=== PATIENT | male | born 1975 | race Asian ===

== ENCOUNTER 2019-10-26 15:50 | Emergency (ER) | payer SELFPAY ==
[~2019-10-26] VITALS: Ht 170.2 cm; Wt 68.2 kg
[2019-10-26] MEDS ORDERED: IV NORMAL SALINE 1000ML BAG 1,000 ML IV ONE (16:30)
[2019-10-26] MEDS ORDERED: ONDANSETRON PF 4 MG/2 ML VIAL. IVP ONE (16:30)
[2019-10-26] MEDS ORDERED: PANTOPRAZOLE IV PUSH 40 MG VIAL. IVP ONE (16:30)
--- NOTE | 2019-10-26 16:35 | PHYS DOC ---
General Adult EDM: Chief Complaint: GI PROBLEM HPI: HPI: Patient is a 44 year old male who presents with 2 weeks ago he began having abdominal pain with some diarrhea and he saw blood in his stool. He stated that it is a dull generalized pain. He stated that he began taking Pepto-Bismol and the blood went away and his stools got dark. He states he has not had a stool for the last week but he still having a generalized dull abdominal pain. He states he does have a lack of appetite and some nausea that comes and goes. He states he is not been vomiting, running a fever, chest pain, shortness of air, headache, dizziness, numbness tingling, visual changes, weakness, focal weaknes ses. He states he has no medical history and takes no medications. He denies any alcohol use or NSAID use. Review of Systems: Review of Systems: GI: Generalized abdominal pain, nausea, denies vomiting, + bloody stools or +diarrhea. [] Heart Score: Risk Factors: Risk Factors: DM, Current or recent (<one month) smoker, HTN, HLP, family history of CAD, obesity. Risk Scores: Score 0 - 3: 2.5% MACE over next 6 weeks - Discharge Home Score 4 - 6: 20.3% MACE over next 6 weeks - Admit for Clinical Observation Score 7 - 10: 72.7% MACE over next 6 weeks - Early Invasive Strategies Physical Exam: PE: Constitutional: Well developed, well nourished, no acute distress, non-toxic appearance. [] HENT: Normocephalic, atraumatic, bilateral external ears normal, oropharynx moist, no oral exudates, nose normal. [] Eyes: PERRLA, EOMI, conjunctiva normal, no discharge. [] Neck: Normal range of motion, no tenderness, supple, no stridor. [] Cardiovascular:Heart rate regular rhythm, no murmur [] Lungs & Thorax: Bilateral breath sounds clear to auscultation [] Abdomen: Bowel sounds hypoactive, soft, no tenderness, no masses, no pulsatile masses. [] Skin: Warm, dry, no erythema, no rash. [] Back: No tenderness, no CVA tenderness. [] Extremities: No tenderness, no cyanosis, no clubbing, ROM intact, no edema. [] Neurologic: Alert and oriented X 3, normal motor function, normal sensory function, no focal deficits noted. [] Psychologic: Affect normal, judgement normal, mood normal. [] EKG: EK and read by Dr Andrew. Sinus Tachycardia and no STEMI[] Radiology/Procedures: Radiology/Procedures: [] Impression: [facility] [address] [place] [address] IMAGING REPORT Signed PATIENT: WU NELSON ACCOUNT: [id number] : 1975 LOCATION: ER AGE: 44 SEX: M EXAM STATUS: REG ER ORD. PHYSICIAN: JACE WESLEY APRN REASON: abd pain, blood in stool PROCEDURE: CT ABD PELV W/ IV CONTRST ONLY CT abdomen and pelvis with contrast History: Abdominal pain, blood in stool Technique: After the administration of intravenous contrast, CT imaging was performed of the abdomen and pelvis. No oral contrast was given as per request. Multiplanar images are reviewed. Exposure: One or more of the following individualized dose reduction techniques were utilized for this examination: 1. Automated exposure control 2. Adjustment of the mA and/or kV according to patient size 3. Use of iterative reconstruction technique. Comparison: None Findings: There is mild dependent atelectasis of the lung bases bilaterally. There is no significant focal abnormality of the liver, spleen, pancreas, adrenal glands. There may be hepatic steatosis. Both kidneys enhance without hydronephrosis. Tiny 0.2 cm hypodense lesion of the mid to superior right kidney is too small to further characterize. Gallbladder is present without obvious intraluminal abnormality by CT. Accurate evaluation of bowel is limited without oral contrast. There is no significant inflammatory change adjacent to the bowel. There is no evidence of bowel obstruction, free fluid, or free air. There could be a degree of mild wall thickening of the more distal sigmoid colon to the rectum although the colon not well distended during exam. There is also possible mild enhancement of the long segment of the more distal small bowel londono. Appendix is not clearly identified, bowel in this region. Urinary bladder is distended. There is a small sclerotic lesion of the proximal right femur at level of the diametaphysis, possibly a bone island. Impression: 1. No significant localized inflammatory type change is identified, somewhat limited evaluation of bowel without oral contrast. There could be a degree of long segment distal small bowel wall enhancement as can be seen with enteritis in the appropriate clinical setting, also mild wall thickening of the more distal sigmoid colon to the rectum as may be seen with mild proctocolitis not excluded. Electronically signed by: Gerardo Jordan MD (10/26/2019 5:26 PM) [facility] DICTATED and SIGNED BY: GERARDO JORDAN MD DATE: 10/26/191725 Course & Med Decision Making: Course & Med Decision Making Pertinent Labs and Imaging studies reviewed. (See chart for details) Abdomen is soft but seems slightly distended and it is nontender to palpation. Bowel sounds are hypoactive. Lungs are clear to auscultation all lobes. Vital signs within normal limits but he is slightly hypertensive. Alert and oriented. Speaks in full clear sentences. Ambulatory with a steady gait. No extremity swelling. Skin pink warm and dry. Mucous membranes moist. Rectal Exam: Normal tone, No mass, Positive control, No Rectal Discharge, No Fissures, No Hemorrhoids Stool: No stool in vault Guaiac: N/A Patient is hemodynamically stable. Vital signs remain stable. Patient will be referred to GI. He is told to stop taking Pepto-Bismol. Patient is educated that Pepto-Bismol can make your stools turn black. Patient did mention that his stools are now hard and so he will be placed on a stool softener. CT shows Impression: 1. No significant localized inflammatory type change is identified, somewhat limited evaluation of bowel without oral contrast. There could be a degree of long segment distal small bowel wall enhancement as can be seen with enteritis in the appropriate clinical setting, also mild wall thickening of the more distal sigmoid colon to the rectum as may be seen with mild proctocolitis not excluded. [] Dragon Disclaimer: Dragon Disclaimer: This electronic medical record was generated, in whole or in part, using a voice recognition dictation system. Departure Departure Impression: Primary Impression: Abdominal pain Qualified Codes: R10.84 - Generalized abdominal pain Disposition: HOME, SELF-CARE Condition: STABLE Referrals: NO PCP (PCP) Patient Instructions: Gastritis, Adult, [id number] Additional Instructions: Follow up with GI. Drink plenty of fluids. Take medications as prescribed and with food. Do not drink Alcohol while on these medications. If you begin having a large amount of rectal bleeding and severe abdominal pain return to ED. Scripts Metronidazole (FLAGYL) 500 Mg Tablet 1 TAB PO BID, #14 TAB Prov: JACE WESLEY TECHNOLOGY COACH 10/26/19 Famotidine (PEPCID) 20 Mg Tablet 20 MG PO BID, #20 TAB Prov: JACE WESLEY TECHNOLOGY COACH 10/26/19 Ondansetron (ONDANSETRON ODT) 4 Mg Tab.rapdis 1 TAB PO PRN Q6-8HRS, #20 TAB Prov: JACE WESLEY TECHNOLOGY COACH 10/26/19 JACE WESLEY APRN Oct 26, 2019 16:35
[2019-10-26] MEDS ORDERED: IOHEXOL 300 MG/ML 100ML VIAL. IV ONE (16:45)
[2019-10-26 16:46] LABS: BASO % 1 % (0-3); EOS # 0.1 x10^3/uL (0.0-0.7); EOS % 1 % (0-3); HEMOGLOBIN 15.3 g/dL (13.0-17.5); LYMPH # 2.3 x10^3/uL (1.0-4.8); LYMPH % 37 % (24-48); MEAN CORPUSCULAR HEMOGLOBIN 31 pg (25-35); MEAN CORPUSCULAR HGB CONC 33 g/dL (31-37); MEAN CORPUSCULAR VOLUME 91 fL (79-100); MONO # 0.4 x10^3/uL (0.0-1.1); MONO % 6 % (0-9); NEUT # 3.5 x10^3/uL (1.8-7.7); NEUT % 56 % (31-73); PLATELET COUNT 272 x10^3/uL (140-400); RED BLOOD COUNT 5.03 x10^6/uL (4.30-5.70); RED CELL DISTRIBUTION WIDTH 13.9 % (11.5-14.5); WHITE BLOOD COUNT 6.2 x10^3/uL (4.0-11.0)
[2019-10-26 16:50] LABS: BILIRUBIN,URINE NEGATIVE (NEG); CLARITY,URINE CLEAR; NITRITE,URINE NEGATIVE (NEG); PH,URINE 6.5 (<5.0-8.0); PROTEIN,URINE NEGATIVE (NEG-TRACE); UROBILINOGEN,URINE 0.2 mg/dL (0.2 mg/dL)
[2019-10-26 16:51] LABS: CALCIUM 8.8 mg/dL (8.5-10.1); CREATININE 1.3 mg/dL (0.7-1.3); GFR 60.5; POTASSIUM 3.2 mmol/L (3.5-5.1)
[2019-10-26 16:57] LABS: ALBUMIN 4.2 g/dL (3.4-5.0); TOTAL BILIRUBIN 0.4 mg/dL (0.2-1.0); TOTAL PROTEIN 8.4 g/dL (6.4-8.2)
[2019-10-26 17:00] LABS: COLOR,URINE STRAW
[2019-10-26] MEDS ORDERED: CONTRAST GIVEN. MC PRN (17:00)
[2019-10-26 17:01] LABS: BACTERIA,URINE 0 /HPF (0-FEW); RBC,URINE RARE /HPF (0-2); SQUAMOUS EPITHELIAL CELL,UR OCC /LPF; WBC,URINE 0 /HPF (0-4)
--- NOTE | 2019-10-26 17:29 | RAD ---
CT abdomen and pelvis with contrast History: Abdominal pain, blood in stool Technique: After the administration of intravenous contrast, CT imaging was performed of the abdomen and pelvis. No oral contrast was given as per request. Multiplanar images are reviewed. Exposure: One or more of the following individualized dose reduction techniques were utilized for this examination: 1. Automated exposure control 2. Adjustment of the mA and/or kV according to patient size 3. Use of iterative reconstruction technique. Comparison: None Findings: There is mild dependent atelectasis of the lung bases bilaterally. There is no significant focal abnormality of the liver, spleen, pancreas, adrenal glands. There may be hepatic steatosis. Both kidneys enhance without hydronephrosis. Tiny 0.2 cm hypodense lesion of the mid to superior right kidney is too small to further characterize. Gallbladder is present without obvious intraluminal abnormality by CT. Accurate evaluation of bowel is limited without oral contrast. There is no significant inflammatory change adjacent to the bowel. There is no evidence of bowel obstruction, free fluid, or free air. There could be a degree of mild wall thickening of the more distal sigmoid colon to the rectum although the colon not well distended during exam. There is also possible mild enhancement of the long segment of the more distal small bowel londono. Appendix is not clearly identified, bowel in this region. Urinary bladder is distended. There is a small sclerotic lesion of the proximal right femur at level of the diametaphysis, possibly a bone island. Impression: 1. No significant localized inflammatory type change is identified, somewhat limited evaluation of bowel without oral contrast. There could be a degree of long segment distal small bowel wall enhancement as can be seen with enteritis in the appropriate clinical setting, also mild wall thickening of the more distal sigmoid colon to the rectum as may be seen with mild proctocolitis not excluded. Electronically signed by: Gerardo Jordan MD (10/26/2019 5:26 PM) [facility]
[2019-10-26] MEDS ORDERED: METR500T PO (18:27)
[2019-10-26] MEDS ORDERED: FAMO-63 PO (18:27)
[2019-10-26] MEDS ORDERED: ONDA4TAB12 PO (18:27)
[2019-10-26 18:45] VITALS: BP 135/87
--- NOTE | 2019-10-27 05:34 | EKG ---
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
== END 2019-10-26 18:55 | disposition home or self-care (01) ==
LOC: ER 15:50
DX: R10.84 Generalized abdominal pain (principal); R19.7 Diarrhea, unspecified; R11.0 Nausea
CPT/HCPCS: 36415; 74177; 80053; 81001; 83690; 84484; 85025; 93005; 96361; 96374; 96375; 99285; C9113; J2405; J7030; Q9967

== ENCOUNTER 2021-03-04 13:54 | Emergency (ER) | payer SELFPAY ==
[~2021-03-04] VITALS: Ht 160 cm; Wt 66.0 kg
[~2021-03-04 13:54] MED LIST: FAMO-63 PO; METR500T PO; ONDA4TAB12 PO
--- NOTE | 2021-03-04 15:14 | PHYS DOC ---
Past Medical History Past Medical History: No Pertinent History Past Surgical History: No Surgical History Smoking Status: Never Smoker Alcohol Use: None General Adult EDM: Chief Complaint: BACK PAIN - NO INJURY HPI: HPI: 45-year-old male past medical history of hypertension, hyperlipidemia, anxiety and depression, presents the ED with complaints of upper back pain, bilateral thigh pain, "pain in my heels when I push on the car peddles," for the past 4 months. 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 Reports he has been vaccinated for Covid. Follows with [facility] but states he stopped all of his home medications because of an "allergy." Patient is [place] speaking and history was obtained using [employer]. No known history of Covid infection. Patient does not drink alcohol or use any drugs. Review of Systems: Review of Systems: Constitutional: Denies fever or chills. [] Eyes: Denies change in visual acuity. [] HENT: Denies nasal congestion or sore throat. [] Respiratory: Denies cough or shortness of breath. [] Cardiovascular: Denies chest pain or edema. [] GI: Denies , nausea and vomiting : Denies incontinence or saddle anesthesia Musculoskeletal: Denies joint swelling or deformity Integument: Denies rash or diaphoresis Neurologic: Denies headache, sensory changes or neck stiffness Endocrine: Denies polyuria or polydipsia. [] Lymphatic: Denies swollen glands. [] Psychiatric: Denies depression or anxiety. [] Heart Score: C/O Chest Pain: No Risk Factors: Risk Factors: DM, Current or recent (<one month) smoker, HTN, HLP, family history of CAD, obesity. Risk Scores: Score 0 - 3: 2.5% MACE over next 6 weeks - Discharge Home Score 4 - 6: 20.3% MACE over next 6 weeks - Admit for Clinical Observation Score 7 - 10: 72.7% MACE over next 6 weeks - Early Invasive Strategies Allergies: Allergies: Allergies Coded Allergies Type Severity Reaction Last Updated Verified No Known Drug Allergies 10/26/19 No Physical Exam: PE: Constitutional: Well developed, well nourished, no acute distress, non-toxic appearance. HENT: Normocephalic, atraumatic, Eyes: EOMI, conjunctiva normal, no discharge. Neck: Normal range of motion, supple, Cardiovascular: S1/2 present, regular rhythm Lungs & Thorax: Speaking in full sentences, bilateral equal chest rise, no tachypnea or increased work of breathing Abdomen: soft, no tenderness, Skin: Warm, dry, no erythema, no rash. [] Back: No midline step-offs, no CVA tenderness, c/o T3-4 ttp w/no step offs Extremities: No tenderness, no cyanosis, no lower extremity edema, equal dp/pt pulses, no bruising to both feet Neurologic: Alert and oriented X 3, normal motor function, normal sensory function, no focal deficits noted. [] Psychologic: Affect normal, judgement normal, mood normal. [] Current Patient Data: Vital Signs: Vital Signs Date Time Temp Pulse Resp B/P (MAP) Pulse Ox O2 Delivery O2 Flow Rate FiO2 03/04/21 14:29 98.7 98 16 149/97 (103) 94 Room Air 98.7 EKG: EKG: Sinus rhythm 92 bpm, no axis deviation, normal intervals, T wave inversion lead III, no ST elevations or ST depressions Radiology/Procedures: Radiology/Procedures: IMAGING REPORT Signed PATIENT: WU NELSON ACCOUNT: [id number] : 1975 LOCATION: ER AGE: 46 SEX: M EXAM STATUS: REG ER ORD. PHYSICIAN: EVETTE HOOK DO REASON: upper back pain PROCEDURE: FOOT BILAT 2V EXAMINATION: Chest and bilateral feet radiographs. VIEWS: Single view of the chest and 6 views of bilateral feet. COMPARISON: None INDICATION:46 years, Male, upper back pain. FINDINGS: Chest: Normal cardiomediastinal silhouette. Subsegmental atelectasis versus scarring in the in the left lung base. No focal consolidation. No pleural effusion or pneumothorax. No acute osseous process. Feet: No acute fracture, dislocation or subluxation. No bone erosion or periosteal reaction. No soft tissue swelling or joint effusion. IMPRESSION: 1. No acute cardiopulmonary process. 2. No acute osseous process of the feet. Electronically signed by: Aditya Fountain MD (03/04/2021 4:07 PM) [facility] DICTATED and SIGNED BY: ADITYA FOUNTAIN MD DATE: 03/04/21 [id number] Course & Med Decision Making: Course & Med Decision Making Pertinent Labs and Imaging studies reviewed. (See chart for details) Concern for multiple complaints related to pain with no remarkable physical exam findings in a well-appearing, comfortable pt. C/o upper back pain, thigh pain and foot pain (plantar fascitisi?). Will discharge home with strict ED return precautions were given for severe pain, fever or neurologic deficits. Encouraged urgent outpatient follow-up with PMD and pain management. Life-threatening processes were considered but are low suspicion at this time, given history, physical exam and ED workup. Pt was educated on all prescription medications and adverse effects. All patient's questions were answered and pt was stable at time of discharge. Life/limb-threatening differential includes but is not limited to, trauma (fracture, dislocation, laceration, compartment syndrome, tendon or ligament injury), neurovascular injury or deficitcva/tia, infection (osteomyelitis, abscess, cellulitis, septic arthritis, necrotizing fasciitis), deep vein thrombosis, renal/cardiac/liver disease, medication adverse effect, lymphedema/anasarca, vascular insufficiency or malignancy, I have spoken with the patient and/or caregivers. I explained the patient's condition, diagnoses and treatment plan based on the information available to me at this time. I have answered the patient and/or caregiver's questions and addressed any concerns. The patient and/or caregivers have a good understanding of patient's diagnosis, condition and treatment plan as can be expected at this point. Vital signs have been stable. Patient's condition is stable and appropriate for discharge from the emergency department. Patient will pursue further outpatient evaluation with primary care physician or other designated or consulting physician as outlined in the discharge instructions. The patient and/or caregivers are agreeable to this plan of care and follow-up instructions have been explained in detail. The patient and/or caregivers have received these instructions in written form and have expressed an understanding of the discharge instructions. The patient and/or caregivers are aware that any significant change of condition or worsening of symptoms should prompt immediate return to this or the closest emergency department or call to 911. [place] Disclaimer: [place] Disclaimer: This electronic medical record was generated, in whole or in part, using a voice recognition dictation system. Departure Departure Impression: Primary Impression: Person under investigation for COVID-19 Additional Impression: Chronic pain Disposition: HOME / SELF CARE / HOMELESS Condition: STABLE Referrals: NO PCP (PCP) Follow-up with your primary care physician in 24 to 48 hours OR FOLLOW UP WITH FAMILY MEDICINE: [address] [place] [address] Patient Instructions: Chronic Pain Additional Instructions: FOLLOW UP WITH PAIN MANAGEMENT: FOR DEFINITIVE MANAGEMENT [facility] [address] [place] [address] EMERGENCY DEPARTMENT GENERAL DISCHARGE INSTRUCTIONS Thank you for coming to [facility] Emergency Department (ED) today and trusting us with you care. We trust that you had a positive experience in our Emergency Department. If you wish to speak to the department management, you may call the Director at [phone]. YOUR FOLLOW UP INSTRUCTIONS ARE FOLLOWS: 1. Do you have a private Doctor? If you do not have a private doctor, please ask for a resource list of physicians or clinics that may be able to assist you with follow up care. 2. The Emergency Physicain has interpreted your x-rays. The X-Ray specialist will also review them. If there is a change in the findings, you will be notified in 48 h ours when at all possible. 3. A lab test or culture has been done, your results will be reviewed and you will be notified if you need a change in treatment. ADDITIONAL INSTRUCTIONS AND INFORMATION: 1. Your care today has been supervised by a physician who is specially trained in emergency care. Many problems require more than one evaluation for a complete diagnosis and treatment. We recommend that you schedule your follow up appointment as recommended to ensure complete treatment of you illness or injury. If you are unable to obtain follow up care and continue to have a problem, or if your condition worsens, we recommend that you return to the ED. 2. We are not able to safely determine your condition over the phone nor are we able to give sound medical advice over the phone. For these safety reasons, if you call for medical advice we will ask you to come to the ED for further evaluation. 3. If you have any questions regarding these discharge instructions please call the ED at [phone]. SAFETY INFORMATION: In the interest of safety, wellness, and injury prevention; we encourage you to wear your sealbelt, if you smoke; quite smoking, and we encourage family to use a protective helmet for bicycling and other sporting events that present an increased risk for head injury. IF YOUR SYMPTOMS WORSEN OR NEW SYMPTOMS DEVELOP, OR YOU HAVE CONCERNS ABOUT YOUR CONDITION; OR IF YOUR CONDITION WORSENS WHILE YOU ARE WAITING FOR YOUR FOLLOW UP APPOINTMENT; EITHER CONTACT YOUR PRIMARY CARE DOCTOR, THE PHYSICIAN WHOSE NAME AND NUMBER YOU WERE GIVEN, OR RETURN TO THE ED IMMEDIATELY. [facility] DO Mar 04, 2021 15:14
[2021-03-04 15:19] LABS: BASO % 1 % (0-3); EOS # 0.1 x10^3/uL (0.0-0.7); EOS % 2 % (0-3); HEMATOCRIT 45.5 % (39.0-53.0); HEMOGLOBIN 15.5 g/dL (13.0-17.5); LYMPH # 1.8 x10^3/uL (1.0-4.8); LYMPH % 27 % (24-48); MEAN CORPUSCULAR HEMOGLOBIN 31 pg (25-35); MEAN CORPUSCULAR HGB CONC 34 g/dL (31-37); MEAN CORPUSCULAR VOLUME 92 fL (79-100); MONO # 0.4 x10^3/uL (0.0-1.1); MONO % 7 % (0-9); NEUT # 4.1 x10^3/uL (1.8-7.7); NEUT % 63 % (31-73); PLATELET COUNT 258 x10^3/uL (140-400); RED BLOOD COUNT 4.97 x10^6/uL (4.30-5.70); RED CELL DISTRIBUTION WIDTH 13.7 % (11.5-14.5); WHITE BLOOD COUNT 6.4 x10^3/uL (4.0-11.0)
[2021-03-04 15:39] LABS: CALCIUM 8.8 mg/dL (8.5-10.1); CREATININE 1.2 mg/dL (0.7-1.3); GFR 65.8; POTASSIUM 3.5 mmol/L (3.5-5.1)
[2021-03-04 15:44] LABS: ALBUMIN/GLOBULIN RATIO 1.1 (1.0-1.7); MAGNESIUM 2.5 mg/dL (1.8-2.4); TOTAL BILIRUBIN 0.3 mg/dL (0.2-1.0); TOTAL PROTEIN 7.6 g/dL (6.4-8.2)
--- NOTE | 2021-03-04 16:09 | RAD ---
EXAMINATION: Chest and bilateral feet radiographs. VIEWS: Single view of the chest and 6 views of bilateral feet. COMPARISON: None INDICATION:46 years, Male, upper back pain. FINDINGS: Chest: Normal cardiomediastinal silhouette. Subsegmental atelectasis versus scarring in the in the le ft lung base. No focal consolidation. No pleural effusion or pneumothorax. No acute osseous process. Feet: No acute fracture, dislocation or subluxation. No bone erosion or periosteal reaction. No soft tissue swelling or joint effusion. IMPRESSION: 1. No acute cardiopulmonary process. 2. No acute osseous process of the feet. Electronically signed by: Nanci Fountain MD (03/04/2021 4:07 PM) [facility]
[2021-03-04 16:41] VITALS: BP 125/83
--- NOTE | 2021-03-04 21:20 | EKG ---
[facility] [address] [place] [address] Test Date: 2021-03-04 Test Time: 15:09:51 Pat Name: WU NELSON Department: Room: Gender: Sprinkler Fitter Helper: : 1975 Requested By: EVETTE HOOK Order Number: [id number] Reading MD: Measurements Intervals [place] Rate: 92 P: 31 VA: 152 QRS: 13 QRSD: 82 T: 11 QT: 340 QTc: 425 Interpretive Statements SINUS RHYTHM NORMAL ECG RI6.02 No previous ECG available for comparison
--- NOTE | 2021-03-06 13:39 | NUR ---
IP: Informed pt of negative covid test. Pt verbalized understanding.
== END 2021-03-04 17:03 | disposition home or self-care (01) ==
LOC: ER 13:54
DX: G89.29 Other chronic pain (principal); Z20.822 Contact with and (suspected) exposure to COVID-19; M54.6 Pain in thoracic spine; M79.651 Pain in right thigh; M79.652 Pain in left thigh; R53.1 Weakness
CPT/HCPCS: 36415; 71045; 73620; 80053; 82550; 83690; 83735; 84484; 85025; 93005; 99285; U0003; U0005